=== PATIENT | female | born 1990 | race Caucasian/White ===

== ENCOUNTER 2018-07-03 09:11 | Day surgery (SDC) | payer OTHER ==
[2018-07-03] MEDS: LACTATED RINGER'S 1,000 ML IV (06:00)
[~2018-07-03 09:11] MED LIST: SOD CHLORIDE 0.9% 1,000 ML IV
[2018-07-03 10:29] LABS: ADD MAN DIFF? NO
[2018-07-03 10:30] LABS: WHITE BLOOD COUNT 8.2 10^3/ul (4.8-10.8)
[2018-07-03 10:30] LABS: BASOPHILS % 0.4 % (0.0-2.0); EOSINOPHILS # 0.1 10^3/ul (0.0-0.5); EOSINOPHILS % 1.3 % (0.0-7.0); HEMATOCRIT 39.5 % (37.0-47.0); HEMOGLOBIN 13.3 g/dl (12.0-16.0); LYMPHOCYTES # 2.2 10^3/ul (0.8-2.9); LYMPHOCYTES % 26.8 % (15.0-51.0); MEAN CORPUSCULAR HEMOGLOBIN 29.2 pg (29.0-33.0); MEAN CORPUSCULAR HGB CONC 33.7 g/dl (32.0-37.0); MEAN CORPUSCULAR VOLUME 86.8 fl (82.0-101.0); MEAN PLATELET VOLUME 12.8 fl (7.4-10.4); MONOCYTE # 0.6 10^3/ul (0.3-0.9); MONOCYTES % 6.8 % (0.0-11.0); NEUTROPHIL # 5.3 10^3/ul (1.6-7.5); NEUTROPHILS % 64.3 % (39.0-77.0); PLATELET COUNT 251 10^3/UL (140-415); RED BLOOD COUNT 4.55 10^6/ul (4.20-5.40); RED CELL DISTRIBUTION WIDTH 12.8 % (11.5-14.5)
[2018-07-03] MEDS ORDERED: ALBUTEROL 0.083% (NEB) 2.5 MG/3 ML AMP HHN (12:00)
[2018-07-03] MEDS ORDERED: morphine (1 MG/ML) 10ML SYRINGE IV ×2 (12:00)
[2018-07-03] MEDS ORDERED: OXYCODONE/ACETAMINOPHEN (5/325) TAB PO ×2 (12:00)
[2018-07-03] MEDS ORDERED: DIPHENHYDRAMINE 50 MG INJ IV (12:00)
[2018-07-03] MEDS ORDERED: FENTAnyl 50 MCG/ML VIAL IV ×2 (12:00)
[2018-07-03] MEDS ORDERED: LABETALOL HCL 20MG INJ IV (12:00)
[2018-07-03] MEDS ORDERED: HYDROmorphONE 1 MG/5 ML IV SYRINGE IV ×2 (12:00)
[2018-07-03] MEDS ORDERED: ONDANSETRON 4 MG INJ IV (12:00)
[2018-07-03] MEDS ORDERED: PROPOFOL 100 ML (12:18)
[2018-07-03] MEDS ORDERED: MIDAZOLAM 1 MG/ML 2 ML INJ (12:18)
[2018-07-03] MEDS ORDERED: PHENYLephrine (100 MCG/ML) 5ML SYG (12:18)
[2018-07-03] MEDS ORDERED: LIDOCAINE 100 MG SYRINGE (12:18)
[2018-07-03] MEDS ORDERED: SUCCINYLCHOLINE CHLORIDE 100 MG/5 ML SYG IV (12:18)
[2018-07-03] MEDS ORDERED: DEXAMETHASONE 4 MG/ML 1 ML INJ (12:18)
[2018-07-03] MEDS ORDERED: FENTAnyl 50 MCG/ML VIAL (12:18)
[2018-07-03] MEDS ORDERED: ONDANSETRON 4 MG INJ (12:18)
[2018-07-03] MEDS: FERRIC SUBSULFATE 8 GM VIAL TOP ×2 (13:13→13:30)
[2018-07-03] MEDS: LIDOCAINE 1%/EPI 30 ML INJ (13:13)
[2018-07-03] MEDS: MEPERIDINE 25 MG INJ IV (13:57)
== END 2018-07-03 15:42 | disposition home or self-care (01) ==
LOC: SDS 09:11
DX: D06.0 Carcinoma in situ of endocervix (principal)
CPT/HCPCS: 57522; 84703; 85025; 86850; 86900; 86901; 88305